=== PATIENT | male | born 1965 | race African-American/Black ===

== ENCOUNTER 2020-12-06 14:20 | Outpatient (CLI) | payer OTHER ==
[2020-12-06 15:29] LABS: Hemoglobin 14.9 g/dL (13.5-17.5); Mean Corpuscular HGB CONC 31.6 g/dL (32.0-36.0); Mean Corpuscular Hemoglobin 29.7 pg (27.0-33.0); Mean Corpuscular Volume 94.2 fl (81.2-95.1); Mean Platelet Volume 10.5 fl (7.4-10.4); Platelet Count 254 10x3/uL (150-450); RBC Distribution Width 11.6 % (11.5-14.5); Red Blood Cell (RBC) Count 5.01 10x6/uL (4.32-5.72); White Blood Cell (WBC) Count 7.6 10x3/uL (3.5-10.5)
[2020-12-06 15:42] LABS: Anion Gap 13 mmol/L (10-20); BUN (Urea Nitrogen) 15 mg/dL (8.4-25.7); Calc. Creatinine Clearance 0 mL/min (70-130); Calcium 10.1 mg/dL (7.8-10.44); Carbon Dioxide 31 mmol/L (22-29); Chloride 101 mmol/L (98-107); Glucose 107 mg/dL (70-105); Potassium 4.7 mmol/L (3.5-5.1); Sodium 140 mmol/L (136-145)
[2020-12-07 11:41] LABS: SARS-CoV-2 PCR by NAA Not Detected (NotDetected)
== END 2020-12-06 14:21 | disposition home or self-care (01) ==
LOC: LABBT 14:20
PROVIDERS: ATTEND Neurological Surgery
DX: Z01.818 Encounter for other preprocedural examination (principal); M54.12 Radiculopathy, cervical region; Z20.822 Contact with and (suspected) exposure to COVID-19
CPT/HCPCS: 80048; 85027; 93005; 93010; U0003; U0005

== ENCOUNTER 2020-12-11 07:33 | Day surgery (SDC) | payer OTHER ==
[2020-12-07 12:40] VITALS: BMI 28.5
[2020-12-11] MEDS ORDERED: Midazolam HCl 2 mg/2 ml Vial ONE (09:29)
[2020-12-11] MEDS ORDERED: Fentanyl 250 MCG/5 ML VIAL ONE (09:39)
[2020-12-11] MEDS ORDERED: Glycopyrrolate 0.2 MG/ML 5 ML SYRINGE ONE (10:03)
[2020-12-11] MEDS ORDERED: Lidocaine 1% PF 5 ML VIAL ONE (10:03)
[2020-12-11] MEDS ORDERED: Ondansetron PF 4 MG/2 ML Vial ONE (10:03)
[2020-12-11] MEDS ORDERED: PROPOFOL 200 MG/20 ML VIAL ONE (10:03)
[2020-12-11] MEDS ORDERED: Ketorolac Tromethamine 30 MG/ML VIAL ONE (10:03)
[2020-12-11] MEDS ORDERED: Rocuronium Bromide 10 MG/ML (10ML VIAL) ONE (10:03)
[2020-12-11] MEDS ORDERED: Dexamethasone 20 MG/5 ML VIAL ONE (10:03)
[2020-12-11] MEDS ORDERED: Fentanyl 100 MCG/2 ML VIAL ONE (11:39)
[2020-12-11] MEDS ORDERED: Morphine 4 MG/ML VIAL ONE (12:00)
[2020-12-11] MEDS ORDERED: Ondansetron ODT 4 MG TAB ONE (14:28)
== END 2020-12-11 14:30 | disposition home or self-care (01) ==
LOC: SDC 07:33
PROVIDERS: ATTEND Neurological Surgery
PROC: 0RG10A0 Fusion of Cervical Vertebral Joint with Interbody Fusion Device, Anterior Approach, Anterior Column, Open Approach (ICD-10-PCS; principal; 2020-12-11)
DX: M50.123 Cervical disc disorder at C6-C7 level with radiculopathy (principal); E78.5 Hyperlipidemia, unspecified; G47.30 Sleep apnea, unspecified; G43.909 Migraine, unspecified, not intractable, without status migrainosus; Z79.84 Long term (current) use of oral hypoglycemic drugs; Z79.899 Other long term (current) drug therapy
CPT/HCPCS: 76000; C1713; C1776; J0690; J1100; J1885; J2250; J2270; J2405; J2704; J3010; Q0162